=== PATIENT | female | born 1960 | race Caucasian/White ===

== ENCOUNTER → 2016-05-21 | Outpatient (CLI) | payer MEDICARE, OTHER | LOC: RAD 15:58 | DX: M79.602 Pain in left arm (principal) | CPT/HCPCS: 73552 ==

== ENCOUNTER → 2016-05-29 | Outpatient (CLI) | payer MEDICARE, OTHER | LOC: US 13:00 | DX: I25.119 Atherosclerotic heart disease of native coronary artery with unspecified angina pectoris (principal); R06.02 Shortness of breath | CPT/HCPCS: ECHO; 93306; 93925 ==

== ENCOUNTER → 2016-09-04 | Outpatient (CLI) | payer MEDICARE, OTHER | LOC: CT 13:18 | DX: R91.8 Other nonspecific abnormal finding of lung field (principal); R59.0 Localized enlarged lymph nodes | CPT/HCPCS: 71250 ==

== ENCOUNTER → 2020-05-30 | Outpatient (CLI) | payer MEDICARE, OTHER ==
[~2020-05-30] MED LIST: BENTYL 20MG TAB20 MG PO; CEFUROXIME500 MG PO; PHENERGAN 25 MG25 M1 PO
== END ==
LOC: KOH-I 11:29
DX: M25.572 Pain in left ankle and joints of left foot (principal)
CPT/HCPCS: 73610

== ENCOUNTER → 2020-06-24 | Outpatient (CLI) | payer MEDICARE, OTHER | LOC: KOH-I 06-14 11:15 → MRI 12:59 | DX: M25.572 Pain in left ankle and joints of left foot (principal); G89.29 Other chronic pain; M25.372 Other instability, left ankle | CPT/HCPCS: 73721 ==

== ENCOUNTER → 2020-08-03 | Outpatient (CLI) | payer MEDICARE, OTHER | LOC: KOH-I 13:17 | DX: S50.02XA Contusion of left elbow, initial encounter (principal) | CPT/HCPCS: 73080 ==

== ENCOUNTER → 2021-02-08 | Outpatient (CLI) | payer MEDICARE, OTHER | LOC: RAD 17:17 | DX: S43.201A Unspecified subluxation of right sternoclavicular joint, initial encounter (principal) | CPT/HCPCS: 73000 ==

== ENCOUNTER → 2021-02-22 | Outpatient (CLI) | payer MEDICARE, OTHER | LOC: KOH-I 15:00 | DX: S43.211A Anterior subluxation of right sternoclavicular joint, initial encounter (principal) | CPT/HCPCS: 73200 ==

== ENCOUNTER 2021-12-02 19:13 | Emergency (ER) | payer MEDICARE, OTHER ==
[2021-12-02 19:51] LABS: HEMOGLOBIN 12.1 gm/dl (12.3-15.3); RED BLOOD COUNT 3.73 M/UL (4.00-5.10); WHITE BLOOD COUNT 5.1 K/UL (4.5-11.0)
[2021-12-02 20:11] LABS: BUN/CREATININE RATIO 14 (0-10)
[2021-12-02] MEDS ORDERED: MELOXICAM7.5 MG PO (23:30)
== END 2021-12-02 23:39 | disposition home or self-care (01) ==
LOC: ER1 19:13
PROVIDERS: Physician Assistant
DX: R55 Syncope and collapse (principal); S09.90XA Unspecified injury of head, initial encounter; S16.1XXA Strain of muscle, fascia and tendon at neck level, initial encounter; S39.012A Strain of muscle, fascia and tendon of lower back, initial encounter; S40.011A Contusion of right shoulder, initial encounter; R07.9 Chest pain, unspecified; E87.6 Hypokalemia; I11.9 Hypertensive heart disease without heart failure; F17.290 Nicotine dependence, other tobacco product, uncomplicated; E11.9 Type 2 diabetes mellitus without complications; Z95.5 Presence of coronary angioplasty implant and graft; Z86.718 Personal history of other venous thrombosis and embolism; Z98.84 Bariatric surgery status; W01.10XA Fall on same level from slipping, tripping and stumbling with subsequent striking against unspecified object, initial encounter; Z87.81 Personal history of (healed) traumatic fracture
CPT/HCPCS: 70450; 71045; 72125; 72128; 72131; 73030; 80053; 82550; 82553; 84484; 85025; 85379; 93005; 99285; G0480